=== PATIENT | female | born 1995 | race Two or more races ===

== ENCOUNTER 2016-10-13 11:22 | Day surgery (SDC) | payer OTHER ==
[2016-10-13] MEDS ORDERED: IOPAMIDOL 300 (61%) 100 ML VIAL IV ONE (11:23)
[2016-10-13] MEDS ORDERED: LACTATED RINGERS 1,000 ML ONE ×4 (12:13→20:02)
[2016-10-13 12:17] LABS: URINE BILIRUBIN NEGATIVE (NEGATIVE); URINE BLOOD 3+ (NEGATIVE); URINE GLUCOSE (UA) NEGATIVE (NEGATIVE); URINE LEUKOCYTE ESTERASE NEGATIVE (NEGATIVE); URINE NITRITE NEGATIVE (NEGATIVE); URINE PROTEIN NEGATIVE (NEGATIVE); URINE UROBILINOGEN NORMAL (0-1 mg/dl)
[2016-10-13 12:19] LABS: URINE APPEARANCE CLEAR; URINE COLOR YELLOW
[2016-10-13 12:29] LABS: URINE BACTERIA 3+
[2016-10-13] MEDS ORDERED: HYDROMORPHONE HCL 0.5 MG/0.5 ML SYRINGE ONE ×2 (12:30→14:35)
[2016-10-13 12:38] LABS: ABSOLUTE NEUTROPHIL COUNT 13.2 K/mm3 (1.8-7.7); BASO # 0.1 K/mm3 (0.0-0.2); BASO % 0.3 % (0.2-1.0); EOS % 0.3 % (0.9-2.9); HEMATOCRIT 40.7 % (37.0-47.0); HEMOGLOBIN 13.2 gm/l (12.0-16.0); IMM NEUT # 0.1 K/mm3 (0-0.2); IMM NEUT% 0.6 % (0-1); LYMPH % 12.3 % (15-45); MEAN CELL VOLUME 90.8 fl (81.0-99.0); MEAN CORPUSCULAR HEMOGLOBIN 29.5 pg (27.0-31.0); MEAN CORPUSCULAR HGB CONC 32.4 g/dl (33.0-37.0); MEAN PLATELET VOLUME 12.7 fl (7.4-10.4); MONO # 0.6 (0.0-0.8); MONO % 3.9 % (4-12); NEUT % 82.6 % (43-75); PLATELET COUNT 192 K/mm3 (130-400); RED CELL DISTRIBUTION WIDTH 12.6 % (11.5-14.5)
[2016-10-13 12:53] LABS: ALBUMIN 4.5 gm/dL (3.5-5.7); CALCIUM 9.4 mg/dL (8.6-10.3)
[2016-10-13 13:37] LABS: HCG,QUALITATIVE URINE NEGATIVE
--- NOTE | 2016-10-13 14:35 | CT ---
Exam Type: ABD/PELVIS W/ CON Date and Time: 10/13/2016 12:24 PM Clinical information: Lower abdominal pain with elevated white blood cell count. Comparison: None Procedure: Imaging device: [place] [employer] [address] scanner 1 mm axial images were obtained through the abdomen and pelvis. Stacked reconstructed 3, 4 and 5 mm images were photographed in the axial coronal and sagittal planes. No oral contrast was utilized for this examination. 100 ml of Isovue-300 was injected intravenously. Exam: with intravenous contrast. FINDINGS: Lung bases:The visualized lung bases appear to be appropriate with no mass, effusion or consolidation visualized. Liver: the liver is homogeneous with no discrete abnormality visualized. No definite findings of biliary dilatation are observed. Spleen: The spleen is homogeneous and does not appear to be enlarged. Gallbladder: Normal without enlargement or evidence of adjacent inflammatory changes. Pancreas: Normal without enlargement or evidence of adjacent inflammatory changes. Adrenal glands: Normal without enlargement or evidence of adjacent inflammatory changes. Abdominal aorta: The aorta is of normal caliber and appears to be without significant atherosclerotic disease. Kidneys: The kidneys appear to be symmetric in size with no perinephric inflammatory changes are identified. No current findings of hydronephrosis are seen. Bowel structures: The visualized bowel is of normal caliber without evidence of dilatation or obstruction. No free fluid or mesenteric inflammatory changes are identified. Appendix: The appendix is well-visualized and appears to be of normal caliber. No periappendiceal inflammatory changes or CT findings of appendicitis are currently observed. Bladder: The bladder is of normal contour. No wall thickening or significant distention is observed. Hernia: No abdominal wall or inguinal hernia is visualized on this examination. Adenopathy: No significant enlarged adenopathy is visualized. Osseous structures: No discrete osseous abnormalities are identified. Pelvic structures: There is a normal appearance of the uterus. A moderate amount of free fluid is seen within the pelvis which appears to be of higher attenuation than normal fluid. This extends along both paracolic gutters into the abdomen to the level of the liver and spleen. This likely reflects hemorrhage products. A low-attenuation focus seen to the right aspect of the uterus on axial image 75 measuring 3.6 x 2.7 cm. Considerations include a right adnexal mass, complicated or hemorrhagic cyst or possibly an ectopic gestation. IMPRESSION: 1. Increased attenuation free fluid throughout the pelvis as well as extending along both paracolic gutters into the abdomen adjacent to the liver and spleen. The attenuation suggests hemorrhage products. A 3.6 x 2.7 cm slightly low-attenuation structure seen to the right aspect of the uterus, likely arising from the right adnexa. Considerations include a hemorrhagic cyst, right adnexal mass, or ectopic gestation. 2. A normal appearance of the appendix without CT evidence of appendicitis. The findings were discussed with Dr. Nguyen at 1430 hours.
[2016-10-13] MEDS ORDERED: ONDANSETRON 4 MG/2ML 2 ML VIAL ONE ×2 (15:58→18:37)
--- NOTE | 2016-10-13 17:03 | US ---
PELVIC COMPLETE, TRANSVAGINAL ECHOGRAPHY History: Pelvic pain with free fluid seen within the pelvis and along both paracolic gutters on prior CT examination. Comparison: CT exam of the same day. Procedure: Transabdominal and transvaginal ultrasonography both were performed for this examination. Findings: Uterus: Uterus is of normal size and shape measuring 6.7 x 2.8 x 2.8 cm. No discrete myometrial mass is visualized. Endometrium: The endometrial thickness measures 2mm in greatest AP diameter. No discrete endometrial abnormalities or masses are observed. Right ovary/right adnexa: The structure within the right adnexa on prior CT scan appears to reflect the patient's right ovary. The ovary measures 6.0 x 3.7 x 3.9 cm and demonstrates internal flow. There is no discrete mass, with the appearance on the prior CT likely due to the surrounding free fluid. Left ovary/left adnexa: The left ovary measures 2.4 x 2.1 x 2.1 cm. There is flow within the left ovary. No left adnexal mass is visualized. Pelvic cul-de-sac: There is a moderate amount of free fluid seen throughout the pelvis as seen on prior CT examination. The fluid demonstrates internal reflectors, appearing complex, and likely again reflecting hemorrhage. Impression: 1. No adnexal mass is visualized. The patient's right ovary appears to correspond to the structure seen on prior CT exam, with the unusual appearance on the previous CT likely due to the surrounding complex pelvic fluid present, most consistent with hemorrhage. 2. Flow within both ovaries without current findings to suggest torsion.
[2016-10-13] MEDS ORDERED: MIDAZOLAM HCL 1 MG/ML 2ML VIAL ONE (18:18)
[2016-10-13] MEDS ORDERED: METOCLOPRAMIDE HCL 5 MG/ML 2ML VIAL ONE (18:37)
[2016-10-13] MEDS ORDERED: PROPOFOL 20 ML IV ONE (18:37)
[2016-10-13] MEDS ORDERED: KETOROLAC TROMETHAMINE 30 MG/ML 1 ML VIAL ONE (18:37)
[2016-10-13] MEDS ORDERED: FENTANYL 100 MCG/2 ML VIAL ONE (18:37)
[2016-10-13] MEDS ORDERED: FAMOTIDINE 10 MG/ML 2ML VIAL ONE (18:37)
[2016-10-13] MEDS ORDERED: ROCURONIUM BROMIDE 10 MG/ML DOSE IV ONE (18:37)
[2016-10-13] MEDS ORDERED: ATROPINE SULFATE 0.4 MG/1 ML VIAL IV PRN (18:47)
[2016-10-13] MEDS ORDERED: MEPERIDINE 25 MG/ML SYRINGE IV PRN (18:47)
[2016-10-13] MEDS ORDERED: NALOXONE HCL 0.4 MG/ML VIAL IV PRN ×2 (18:47→19:52)
[2016-10-13] MEDS ORDERED: ONDANSETRON 4 MG/2ML 2 ML VIAL IV PRN (18:47)
[2016-10-13] MEDS ORDERED: PROMETHAZINE HCL 25 MG/ML VIAL IM PRN (18:47)
[2016-10-13] MEDS ORDERED: LABETALOL HCL 5 MG/ML 20ML VIAL IV PRN (18:47)
[2016-10-13] MEDS ORDERED: CEFAZOLIN SODIUM 1,000 MG VIAL ONE ×2 (18:54→18:56)
[2016-10-13] MEDS ORDERED: LACTATED RINGERS 1,000 ML IV SCH (19:00)
[2016-10-13] MEDS ORDERED: MORPHINE SULFATE 4 MG/ML SYRINGE ONE ×3 (19:32→19:42)
[2016-10-13] MEDS: MORPHINE SULFATE 4 MG/ML SYRINGE IV PRN ×4 (19:32→19:52)
[2016-10-13] MEDS ORDERED: DOCUSATE SODIUM 100 MG CAPSULE PO PRN (19:42)
[2016-10-13] MEDS ORDERED: BLISTEX LIPSTICK 1 EACH TP PRN (19:42)
[2016-10-13] MEDS ORDERED: MENTHOL/CETYLPYRD 1 EACH LOZENGE PO PRN (19:42)
[2016-10-13] MEDS ORDERED: DIPHENHYDRAMINE HCL 50 MG/1 ML VIAL IV PRN (19:42)
[2016-10-13] MEDS ORDERED: ACETAMINOPHEN 325 MG TABLET PO PRN (19:42)
[2016-10-13] MEDS ORDERED: MAGNESIUM HYDROXIDE/AL HYDROX 30 ML UDCUP PO PRN (19:42)
[2016-10-13] MEDS ORDERED: MAG HYDROX/AL HYDROX/SIMETH 30 ML UDCUP PO PRN (19:42)
[2016-10-13] MEDS ORDERED: D5LR 1,000 ML IV ONE (20:00)
[2016-10-13] MEDS ORDERED: HYDROMORPHONE HCL 2 MG/ML SYRINGE IV PRN ×2 (20:05→20:09)
--- NOTE | 2016-10-13 20:07 | PCMBPN ---
Brief Post Op Note: Date of Procedure: 10/13/16 Start Time: Preoperative Diagnosis: 1. hemoperitoneum, right ovarian cyst, negative hcg Postoperative Diagnosis: 1. hemoperitoneum, right ectopic , negative hcg Procedure: exploratory laparotomy, right partial salpingectomy Surgeon: Hasmukh Goldberg Assist: ms viky rosas Anesthesia: ms ritchie, general Findings: hemoperitoneum approximately 400cc, normal size anteverted uterus, left ovary and tube normal, right ovary normal, right fallopian tube with ectopic 3x3cm near fimbriated end Condition: stable Complications: none IV Fluids: mLs of LR Urine Output: mLs Estimated Blood Loss: 400 mLs Tourniquet Time: N/A Specimens: portion of right fallopian tube Implants: Drains: N/A closure: issac. patient tolerated procedure well and was returned to recovery room in stable condition with colbert draining clear yellow urine.
[2016-10-13] MEDS ORDERED: HYDROMORPHONE HCL 1 MG/ML SYRINGE ONE (20:08)
[2016-10-13] MEDS ORDERED: PCA ADMINISTRATION KIT ONE (20:45)
[2016-10-13] MEDS ORDERED: PUMP TUBING ONE (20:45)
[2016-10-13] MEDS ORDERED: [UNRECOGNIZED DRUG - OTHER] IV ONE (20:52)
[2016-10-13] MEDS ORDERED: EtCO2 Monitoring Set ONE (20:57)
[2016-10-13] MEDS: [UNRECOGNIZED DRUG - OTHER] IV SCH (21:04)
[2016-10-13] MEDS: LACTATED RINGERS 1,000 ML IV SCH (21:06)
[2016-10-13 23:46] VITALS: BMI 19.9
[2016-10-14] MEDS: IBUPROFEN 800 MG TABLET PO SCH ×4 (01:32→19:16)
[2016-10-14] MEDS: LACTATED RINGERS 1,000 ML IV SCH ×3 (04:50→21:00)
[2016-10-14] MEDS: [UNRECOGNIZED DRUG - OTHER] IV SCH ×2 (04:57→06:11)
[2016-10-14 07:11] LABS: HEMOGLOBIN 9.3 gm/l (12.0-16.0)
--- NOTE | 2016-10-14 08:44 | PDOC43 ---
- Subjective Subjective: Reports Pain Tolerable, Reports Tolerating PO Clear (had a little breakfast this morning), Denies Nausea, Denies Vomiting, Denies Fever - Objective Vital Signs Temperature 98.5 F 10/14/16 08:20 Pulse Rate 79 10/14/16 08:20 Respiratory Rate 16 10/14/16 08:20 Blood Pressure 112/62 10/14/16 08:20 O2 Saturation by Pulse Oximetry 98 10/14/16 08:20 Oxygen Delivery Method Nasal Cannula Oxygen Flow Rate 2 Laboratory 10/14/16 07:00 10/13/16 12:15 10/13/16 12:15 MCHC 32.4 L AST 12 L Active Medication Orders Category Date Time Status Acetaminophen [Tylenol] Med 10/13/16 19:42 Active 325 - 650 mg PO Q4H PRN Diphenhydramine HCl [Benadryl] Med 10/13/16 19:42 Active 25 mg IV Q6H PRN Docusate Sodium [Colace] Med 10/13/16 19:42 Active 100 mg PO BID PRN Ibuprofen [Motrin] Med 10/14/16 01:30 Active 800 mg PO Q6H LR 1,000 ml Med 10/13/16 19:45 Active Lactated Ringers 1,000 ml IV 125 mls/hr Lip [place] [Blistex] Med 10/13/16 19:42 Active 1 each TP PRN PRN Magnesium Hydroxide/Al Hydrox [Maalox] Med 10/13/16 19:42 Active 30 ml PO Q4H PRN Magnesium/Al Hydrox/Simeth [Maalox Plus] Med 10/13/16 19:42 Active 30 ml PO Q4H PRN Menthol/Cetylpyridinium [Cepacol] Med 10/13/16 19:42 Active 1 each PO PRN PRN Morphine Sulfate PREPAROLE COUNSELING AIDE(Monoject) [Morphine Sulfate PREPAROLE COUNSELING AIDE ( Med 10/13/16 20:00 Active Monoject)] See Protocol IV PCA12 Naloxone HCl [Narcan] Med 10/13/16 19:52 Active 0.04 - 0.4 mg IV Q5M PRN Oxycodone HCl/Acetaminophen [Percocet 5/325] Med 10/13/16 19:42 Active 1 - 2 tab PO Q4H PRN Sodium Chloride 0.9% Flush [Normal Saline 10ml Flush] Med 10/13/16 19:42 Active 10 - 50 ml IV PRN PRN Sodium Chloride 0.9% Flush [Normal Saline 10ml Flush] Med 10/14/16 01:00 Active 10 ml IV Q8HR Intake and Output 10/12/16 10/13/16 10/14/16 23:59 23:59 23:59 Intake Total 2049 Output Total 1640 Balance 409 Abdomen: Soft, Tenderness (appropriately tender), Non-Distended, Hypoactive Bowel Sounds Wound SECURITY ALARM INSTALLER: Dressing in Place - Disposition: Disposition: Stable (POD#1 s/p exploratory laparotomy/salpingectomy. Suspected ectopic . Follow HCG. Advance diet. Pt on PREPAROLE COUNSELING AIDE - will d/c this PM and pt to ambulate.)
--- NOTE | 2016-10-14 09:02 | HP ---
GRETCHEN HOGUEREGLEN Marie : 1995 DATE OF ADMISSION: October 13, 2016 HISTORY OF PRESENT ILLNESS: This is a 21-year-old female who presented to the emergency room today with onset of pelvic pain and abdominal pain since 10:00 a.m. Her last period was 08/09 and she is taking depoprovera. She stated that the pain got worse over the day and it is consistent throughout the day. She is also having left and right shoulder pain. CT scan showed right ovarian cyst with a possibility of a hemoperitoneum. She has no history of fever. An ultrasound was also performed which showed a right and left ovarian cysts. test was negative. OB HISTORY: 1, para 1, 0/0/1, one spontaneous vaginal delivery. SITE PROMOTION AGENT HISTORY: Menarche 11 times 28 times 4. Sexually transmitted disease, negative. She has been on depoprovera since April of 2016. PAST MEDICAL HISTORY: Negative. ALLERGIES: NEGATIVE. MEDICATIONS: None. PAST SURGICAL HISTORY: None. SOCIAL HISTORY: Smokes marijuana infrequently. REVIEW OF SYSTEMS: Positive for shoulder and abdominal pain previously described. PHYSICAL EXAM: GENERAL: This is a thin female in no acute distress. HEENT: Normal although she does appear pale. NECK: Supple. CARDIOVASCULAR: Regular sinus rhythm, no murmurs. LUNGS: Clear. BREAST: Exam was deferred. ABDOMEN: Flat, mildly tender in both lower quadrants with no rebound and no guarding. She does have decreased bowel sounds. PELVIC: External genitalia healthy. The vagina showed minimal amount of vaginal bleeding. Cervix is closed, pink, and mildly tender. The uterus was normal size and anteverted, and mildly tender. A fullness and tenderness was felt more in the left adnexa. There was no right adnexal mass noted on exam. ASSESSMENT: The impression is ovarian cyst, possible hemorrhagic ovarian cyst and hemoperitoneum. PLAN: Plan is an exploratory laparotomy with an ovarian cystectomy and/or oophorectomy and salpingectomy. Risks, reasons, and complications including but not limited to infection, anesthesia accidents and damage to internal organs was discussed in detail with patient and partner. Alternatives discussed including laparoscopy--which I am not recommending at this point because of the possibility of hemoperitoneum--versus conservative measures such as observing clinically which I am not recommending either because her hemoglobin level has decreased. The patient indicated that she understood the procedure and all questions were answered in simple terms.
--- NOTE | 2016-10-14 09:47 | OP ---
GLEN RODRIGUEZ : 1995 DATE OF OPERATION: October 13, 2016 PROCEDURES PERFORMED: 1. EXPLORATORY LAPAROTOMY. 2. RIGHT PARTIAL SALPINGECTOMY. PREOPERATIVE DIAGNOSES: 1. Hemoperitoneum. 2. Right ovarian cyst. 3. Negative test. POST OPERATIVE DIAGNOSES: 1. Hemoperitoneum. 2. Right ectopic . SURGEON: Hasmukh Goldberg M.D. RADAR REPAIRER: Martita Ames ANESTHESIA: Janel Sales C.R.N.A. PROCEDURE: With the patient under general anesthesia, she was in the supine position. The Longo was draining clear, yellow urine. The abdomen had been prepared with Chloraprep and was draped in the usual manner. After a timeout was performed, a Pfannenstiel incision was made through the skin. The subcutaneous tissue was then dissected down using the same knife to the rectus abdominis fascia which was nicked with the knife and carried laterally with Caldera scissors. All bleeding points were clamped with Krystal clamps and Bovied. The superior portion of the fascia was grasped with Santa clamps, median raphe divided with the Caldera scissors and a similar procedure was performed on the lower end of the incision. The muscle was split in the mid portion, the peritoneum identified and entered by blunt dissection using a finger and then stretched laterally. Findings including a hemoperitoneum of about 400 mL. The uterus was normal sized and anteverted. The left ovary and tube were normal. The right ovary was normal. The right fallopian tube had an apparent ectopic measuring 3 x 3 cm in dimensions toward the fimbriated portion. The blood and clots were evacuated from the peritoneal cavity and then a Yusuf clamp was used to grasp the right fallopian tube in its mid portion. For better mobilization, a wzfvvk-dr-faynz suture of #1 Chromic material was placed at the fundus of the uterus which was used for traction. The involved ectopic was doubly clamped with Santa clamps and then divided in between the clamps with Caldera scissors. The remaining tube was sutured with #1 Chromic [id number]-[id number] suture followed by a second suture of the same material in a qpirov-lj-ifzhk manner. The clamp was then removed from the remaining portion of the fallopian tube and the edges were bovied resulting in complete hemostasis. Now with complete hemostasis, the peritoneum was irrigated with normal saline and suctioned. The gksvxd-hg-[id number] suture in the uterine fundus was tied, there was complete hemostasis at the uterine fundus. With complete hemostasis and sponge and instrument count reported as correct by the nurse, the rectus abdominis muscle was reapproximated with four interrupted sutures of #1 Chromic material. Then the fascia was closed in a continuous manner with #1 Vicryl material locking the first stitch. Subcutaneous bleeding points were bovied prior to closure of skin. The skin was closed with issac. Estimated blood loss including the evacuation of the blood from the peritoneal cavity was approximately 400 mL. The patient tolerated the procedure well and was returned to the recovery room in stable condition with the Longo draining clear, yellow urine. Patient did receive 2 g of Ancef prior to the skin incision being made. FINAL DIAGNOSES: 1. Hemoperitoneum. 2. Right ectopic with a negative HCG.
[2016-10-14] MEDS: OXYCODONE/ACETAMINOPHEN 5/325 MG TABLET PO PRN ×2 (11:09→20:57)
[2016-10-14] MEDS ORDERED: ONDANSETRON 4 MG/2ML 2 ML VIAL IV PRN (12:33)
[2016-10-15] MEDS: IBUPROFEN 800 MG TABLET PO SCH ×2 (01:17→07:25)
[2016-10-15] MEDS: LACTATED RINGERS 1,000 ML IV SCH (06:02)
[2016-10-15] MEDS: OXYCODONE/ACETAMINOPHEN 5/325 MG TABLET PO PRN (06:22)
[2016-10-15 06:36] VITALS: BP 117/75
--- NOTE | 2016-10-16 15:34 | SURGPATH ---
[facility] [address] [place] [id number] Patient Name: GLEN RODRIGUEZ MR#: [id number] : 1995 Gender: F Specimen #: [id number] Collected: 10/13/2016 Received: 10/15/2016 Reported: 10/16/2016 Submitting Phys: LYLA TELLO I Copy To Phys: MICAELA HERNANDEZ [facility] Clinical History / Pre-Operative Diagnosis: HEMORRHAGIC OVARIAN CYST; HEMOPERITONEUM Specimen Source / Surgical Procedure Performed: PORTION OF RIGHT FALLOPIAN TUBE Interpretation: FALLOPIAN TUBE, RIGHT, SALPINGECTOMY: - HEMORRHAGIC FALLOPIAN TUBE CONTAINING DEGENERATED AND NECROTIC CHORIONIC VILLI, CONSISTENT WITH ECTOPIC TUBAL Comment: Clinical correlation is recommended. This case was reviewed at the intradepartmental pathology conference with concurrence of the interpretation by all the attendees. Electronically Signed Out Katherine Cordon M.D. Gross Description: The specimen is received in a formalin filled container labeled with the patient's name and "portion of right fallopian tube". A dilated purple petit fallopian tube with free and delicate fimbriated end is 5.5 by up to 3 cm. Sectioning reveals a dilated lumen filled with red-brown blood clot. Approximately 50% of the specimen is submitted as alternating sections from distal to proximal in cassettes A-F. Saran Burger. Microscopic Description: Sections show a dilated fallopian tube containing a thrombus with overlying granulation tissue, which extends into the lumen. Degenerated chorionic villi are present within the lumen, with rare villi showing viable syncytiotrophoblasts and cytotrophoblasts. 1: [id number] O00.1
== END 2016-10-15 12:22 | disposition home or self-care (01) ==
LOC: ED 11:22 → SDC 17:36 → MS 21:39 → SDC 10-15 12:22
PROVIDERS: ATTEND Obstetrics & Gynecology
PROC: 10T Obstetrics, Pregnancy, Resection (ICD-10-PCS; principal; 2016-10-13)
PROC: 0UB50ZZ Excision of Right Fallopian Tube, Open Approach (ICD-10-PCS; 2016-10-13)
DX: O00.10 Tubal pregnancy without intrauterine pregnancy (principal); F12.90 Cannabis use, unspecified, uncomplicated
CPT/HCPCS: 59120; 83690; 81025; 84702; 84703; 85025; 80053; 85014; 85018 ×2; 81001; 36415 ×3; 74177; 86901; 86850 ×3; 76856; 76830; 96375; 96376; 99284; 96374; 96361 ×3; 99285; J0690 ×2; J1170 ×3; J3010; A9270 ×8; J2270 ×4; J2765; J1885; J2250; J2405 ×3; J7120 ×7; Q9967